=== PATIENT | male | born 1970 | race Caucasian/White ===

== ENCOUNTER 2019-07-30 21:09 | Emergency (ER) | payer OTHER ==
[~2019-07-30] VITALS: Ht 177.8 cm; Wt 83.9 kg
[2019-07-30] MEDS ORDERED: Prednisone20 MG PO (23:55)
== END 2019-07-31 00:22 | disposition home or self-care (01) ==
LOC: ER 21:09
DX: R09.1 Pleurisy (principal)
CPT/HCPCS: 71046; 99283-25; J7512